=== PATIENT | female | born 1960 | race Caucasian/White ===

== ENCOUNTER 2023-06-10 09:34 | Emergency (ER) | payer OTHER ==
[~2023-06-10] VITALS: Ht 162.6 cm; Wt 75.2 kg
[2023-06-10 09:37] VITALS: BP 181/108; PULSE 68; TEMP 97; O2SAT 98
[2023-06-10 09:43] VITALS: RESP 18
--- NOTE | 2023-06-10 09:50 | NUR ---
SERVICE CLERK ASSESSMENT REVIEWED BY RASHEL RN; APPROVED
[2023-06-10] MEDS ORDERED: TETanus/Pertussis (Acell)/Diphther VAC/PF (Tdap-Adult) 0.5ml syringe IMVAC ONE (10:00)
[2023-06-10] MEDS ORDERED: LIDOCAINE 1%/EPI 1:100,000 inj. 10 ML multi-dose vial IJ ONE (10:00)
== END 2023-06-10 10:54 | disposition home or self-care (01) ==
LOC: ER 09:35
DX: S61.412A Laceration without foreign body of left hand, initial encounter (principal); I10 Essential (primary) hypertension; K21.9 Gastro-esophageal reflux disease without esophagitis; W45.8XXA Other foreign body or object entering through skin, initial encounter; Y93.89 Activity, other specified; Y92.89 Other specified places as the place of occurrence of the external cause; Y99.8 Other external cause status
CPT/HCPCS: 12001; 90471; 90715; 99283; A6449